=== PATIENT | male | born 1990 | race Caucasian/White ===

== ENCOUNTER 2024-11-05 20:19 | Emergency (ER) | payer BC ==
[~2024-11-05] VITALS: Ht 182.9 cm; Wt 99.1 kg
[2024-11-05] MEDS: BOOSTRIX VACCINE (TETANUS/DIPHTH/ACEL. PERTUSSIS) 0.5 ML SYR IM.IMMUN ONE (22:06)
[2024-11-05] MEDS: LIDOCAINE 2% MDV 20 ML VIAL SC ONE (22:06)
[2024-11-05 22:09] VITALS: BP 129/67; TEMP 97.1; O2SAT 100
== END 2024-11-05 22:28 | disposition home or self-care (01) ==
LOC: M ED 20:19
DX: S61.012A Laceration without foreign body of left thumb without damage to nail, initial encounter (principal); W26.0XXA Contact with knife, initial encounter; Y92.009 Unspecified place in unspecified non-institutional (private) residence as the place of occurrence of the external cause; Y93.89 Activity, other specified; Y99.9 Unspecified external cause status; Z23 Encounter for immunization; Z88.0 Allergy status to penicillin